=== PATIENT | female | born 1975 | race Caucasian/White ===

== ENCOUNTER 2017-05-27 03:22 | Emergency (ER) | payer BC ==
[~2017-05-27] VITALS: Ht 182.9 cm; Wt 99.2 kg
[~2017-05-27 03:22] MED LIST: ACET-1693 PO; FLUO20CA35 PO; METH10TA4 PO
[2017-05-27 03:25] VITALS: TEMP 36.8; Ht 182.9 cm; Wt 99.2 kg
[2017-05-27] MEDS ORDERED: ONDANSETRON INJ 2 MG/ML 2 ML VIAL IV STA (03:54)
[2017-05-27] MEDS ORDERED: MoRPHine SULFATE 4 MG/ML 1 ML CARP\\VIAL IV ONE (04:00)
[2017-05-27] MEDS ORDERED: SODIUM CHLORIDE 0.9% 1000ML 1,000 ML IV ONE (04:00)
[2017-05-27] MEDS ORDERED: FLUO40CA8 PO (04:20)
[2017-05-27] MEDS ORDERED: MULT-506 PO (04:20)
[2017-05-27 04:25] LABS: BASO % 0.2 %; BASO ABS # 0.02 K/uL (0-0.2); EOS % 1.2 %; HEMATOCRIT 42.6 % (37-47); HEMOGLOBIN 14.5 g/dL (12.0-16.0); IG# 0.03 K/uL (0.00-0.02); LYMPH % 22.1 %; LYMPH ABS # 1.89 K/uL (1.2-3.4); MEAN PLATELET VOLUME 11.1 fL (7.4-10.4); MONO % 4.6 %; MONO ABS # 0.39 K/uL (0.11-0.59); NEUT % 71.5 %; NEUT ABS # 6.14 K/uL (1.4-6.5); PLATELET COUNT 157 K/uL (130-400); RED CELL DISTRIBUTION WIDTH CV 12.6 % (11.5-14.5); WHITE BLOOD COUNT 8.57 K/uL (4.8-10.8)
[2017-05-27 04:43] LABS: ALBUMIN 3.7 gm/dl (3.4-5.0); CREATININE 0.83 mg/dl (0.60-1.20); POTASSIUM 3.8 mmol/L (3.5-5.1)
[2017-05-27] MEDS ORDERED: OPTIRAY 320 IV PRN (04:45)
[2017-05-27 04:46] LABS: TOTAL PROTEIN 7.9 gm/dl (6.4-8.2)
[2017-05-27] MEDS ORDERED: ONDA4TAB10 SL (07:04)
[2017-05-27 07:49] VITALS: BP 125/82; PULSE 75; O2SAT 99
--- NOTE | 2017-05-27 08:01 | DIAGNOSTIC IMAGING REPORT ---
CT OF THE ABDOMEN AND PELVIS WITH CONTRAST CLINICAL HISTORY: Abdominal pain, nausea and vomiting. Breast cancer. COMPARISON STUDY: CT of the abdomen and pelvis December 12, 2015 and abdominal series December 13, 2015. TECHNIQUE: Following IV administration of 93 mL of Optiray-320, axial images of the abdomen and pelvis were obtained from the lung bases to the proximal femurs. Images were reviewed in the axial, sagittal, and coronal planes. IV contrast was administered without complication. A dose lowering technique was utilized adhering to the principles of ALARA. CT DOSE: 853.67 mGy.cm FINDINGS: Bilateral breast implants are partially imaged on this exam. The lung bases are clear. A few hypodense right hepatic lobe lesions are unchanged from earlier studies. These are considered benign. No new hepatic lesions are present. The largest lesion is suggestive of a hemangioma. The spleen, adrenal glands, left kidney and pancreas are normal. There is scarring within the upper pole the right kidney. There is no hydronephrosis. There is no biliary or pancreatic ductal dilatation status post cholecystectomy. No abdominal or pelvic lymphadenopathy is present. A bowel anastomosis is noted. There is no evidence for a bowel obstruction. Postoperative findings involving the anterior abdominal wall are noted. There are no suspicious osseous lesions. There is no ascites. No pneumatosis, free air or portal venous gas is present. Note is made of a 3.5 cm cystic right ovarian lesion. IMPRESSION: 1. No acute process within the abdomen or pelvis. 2. No evidence for metastatic disease within the abdomen or pelvis. 3. No bowel obstruction. 4. 3.5 cm suspected right ovarian cyst. A follow-up pelvic ultrasound 6 weeks to ensure resolution is recommended. Electronically signed by: Tre Chiu M.D. 05/27/2017 8:00 AM Dictated Date/Time: 05/27/2017 7:47 AM
--- NOTE | 2017-05-27 23:06 | EMERGENCY ROOM VISIT NOTE ---
History First contact with patient: 03:43 Chief Complaint: GI ASSESSMENT Stated Complaint: BOWEL BLOCKAGE Nursing Triage Summary: ABDOMINAL PAIN NAUSEA VOMITING. PT STATES IT FEELS LIKE IT DID WHEN SHE HAD A BOWEL OBSTRUCTION History of Present Illness The patient is a 41 year old female who presents to the Emergency Room with complaints of upper abdominal pain with nausea and vomiting for the past few hours. The patient has an extensive medical history including breast cancer, cholecystectomy, appendectomy, small bowel obstruction with surgical repair, colon resection with reanastomosis, and tubal ligation. The patient states her pain tonight feels similar to when she last had a small bowel obstruction 2 years ago. She is concerned about her symptoms she also had vomiting and bloating in the upper abdomen. She rates her current discomfort a 7/10. She has not taken anything [id number] for her discomfort. She is not having any lower abdominal discomfort. She feels like she is using the bathroom is normal. Review of Systems More than 10 systems were reviewed and otherwise negative with the exception of history of present illness. Past Medical/Surgical History Medical Problems: (1) ADD (attention deficit disorder) (2) Carcinoma of breast (3) Depression (4) Dysplasia of cervix (5) Generalized anxiety disorder (6) History of hysteroscopy (7) Pulmonary embolism (8) SBO (small bowel obstruction) Surgical Problems: (1) H/O breast biopsy (2) H/O exploratory laparotomy (3) H/O mastectomy (4) History of lymphadenectomy (5) Hx of cholecystectomy Family History Cardiac disorder FATHER Diabetes mellitus FATHER Hypertension MOTHER Kidney disease MOTHER (kidney transplant) Social History Smoking Status: Never Smoker Alcohol Use: none Drug Use: none Marital Status: single Housing Status: lives alone Occupation Status: employed Current/Historical Medications Scheduled Fluoxetine (Prozac), 40 MG PO DAILY Multivitamin (Multivitamin), 1 TAB PO DAILY Ondasetron Odt (Zofran Odt), 4 MG SL Q6H Physical Exam Vital Signs Date Time Temp Pulse Resp B/P (MAP) Pulse Ox O2 Delivery O2 Flow Rate FiO2 05/27/17 07:49 75 18 125/82 99 05/27/17 06:15 70 20 128/63 99 Room Air 05/27/17 04:21 68 05/27/17 03:25 36.8 76 20 130/85 99 Room Air Physical Exam VITALS: Vitals are noted on the nurse's note and reviewed by myself. Vital signs stable. GENERAL: Well-developed, well-nourished, white female, who is in no acute distress and resting comfortably. Patient is cooperative with the examination. HEAD: Normocephalic atraumatic. HEART: Regular rate and rhythm without murmurs gallops or rubs. LUNGS: Clear to auscultation bilaterally without wheezes, rales or rhonchi. No retractions or accessory muscle use. ABDOMEN: Positive normal bowel sounds x 4. Soft with mild epigastric abdominal tenderness on palpation. No rebound or guarding. No lower abdominal tenderness. MUSCULOSKELETAL: No muscle atrophy, erythema, or edema noted. Full range of motion in all extremities. No tenderness to palpation. Medical Decision & Procedures ER Provider Diagnostic Interpretation: CT OF THE ABDOMEN AND PELVIS WITH CONTRAST CLINICAL HISTORY: Abdominal pain, nausea and vomiting. Breast cancer. COMPARISON STUDY: CT of the abdomen and pelvis December 12, 2015 and abdominal series December 13, 2015. TECHNIQUE: Following IV administration of 93 mL of Optiray-320, axial images of the abdomen and pelvis were obtained from the lung bases to the proximal femurs. Images were reviewed in the axial, sagittal, and coronal planes. IV contrast was administered without complication. A dose lowering technique was utilized adhering to the principles of ALARA. CT DOSE: 853.67 mGy.cm FINDINGS: Bilateral breast implants are partially imaged on this exam. The lung bases are clear. A few hypodense right hepatic lobe lesions are unchanged from earlier studies. These are considered benign. No new hepatic lesions are present. The largest lesion is suggestive of a hemangioma. The spleen, adrenal glands, left kidney and pancreas are normal. There is scarring within the upper pole the right kidney. There is no hydronephrosis. There is no biliary or pancreatic ductal dilatation status post cholecystectomy. No abdominal or pelvic lymphadenopathy is present. A bowel anastomosis is noted. There is no evidence for a bowel obstruction. Postoperative findings involving the anterior abdominal wall are noted. There are no suspicious osseous lesions. There is no ascites. No pneumatosis, free air or portal venous gas is present. Note is made of a 3.5 cm cystic right ovarian lesion. IMPRESSION: 1. No acute process within the abdomen or pelvis. 2. No evidence for metastatic disease within the abdomen or pelvis. 3. No bowel obstruction. 4. 3.5 cm suspected right ovarian cyst. A follow-up pelvic ultrasound 6 weeks to ensure resolution is recommended. Laboratory Results 05/27/17 04:07 Red Blood Count 4.68, Mean Corpuscular Volume 91.0, Mean Corpuscular Hemoglobin 31.0, Mean Corpuscular Hemoglobin Concent 34.0, Mean Platelet Volume 11.1, Neutrophils (%) (Auto) 71.5, Lymphocytes (%) (Auto) 22.1, Monocytes (%) (Auto) 4.6, Eosinophils (%) (Auto) 1.2, Basophils (%) (Auto) 0.2, Neutrophils # (Auto) 6.14, Lymphocytes # (Auto) 1.89, Monocytes # (Auto) 0.39, Eosinophils # (Auto) 0.10, Basophils # (Auto) 0.02 05/27/17 04:07 Test 05/27/17 04:04 05/27/17 04:07 Urine Color YELLOW Urine Appearance CLOUDY (CLEAR) Urine pH 5.0 (4.5-7.5) Urine Specific [place] 1.027 (1.000-1.030) Urine Protein NEG (NEG) Urine Glucose (UA) NEG (NEG) Urine Ketones NEG (NEG) Urine Occult Blood NEG (NEG) Urine Nitrite NEG (NEG) Urine Bilirubin NEG (NEG) Urine Urobilinogen NEG (NEG) Urine Leukocyte Esterase NEG (NEG) Urine WBC (Auto) 1-5 /hpf (0-5) Urine RBC (Auto) 5-10 /hpf (0-4) Urine Hyaline Casts (Auto) 1-5 /lpf (0-5) Urine Epithelial Cells (Auto) >30 /lpf (0-5) Urine Bacteria (Auto) NEG (NEG) Urine Test NEG (NEG) White Blood Count 8.57 K/uL (4.8-10.8) Red Blood Count 4.68 M/uL (4.2-5.4) Hemoglobin 14.5 g/dL (12.0-16.0) Hematocrit 42.6 % (37-47) Mean Corpuscular Volume 91.0 fL (80-100) Mean Corpuscular Hemoglobin 31.0 pg (25-34) Mean Corpuscular Hemoglobin Concent 34.0 g/dl (32-36) Platelet Count 157 K/uL (130-400) Mean Platelet Volume 11.1 fL (7.4-10.4) Neutrophils (%) (Auto) 71.5 % Lymphocytes (%) (Auto) 22.1 % Monocytes (%) (Auto) 4.6 % Eosinophils (%) (Auto) 1.2 % Basophils (%) (Auto) 0.2 % Neutrophils # (Auto) 6.14 K/uL (1.4-6.5) Lymphocytes # (Auto) 1.89 K/uL (1.2-3.4) Monocytes # (Auto) 0.39 K/uL (0.11-0.59) Eosinophils # (Auto) 0.10 K/uL (0-0.5) Basophils # (Auto) 0.02 K/uL (0-0.2) RDW Standard Deviation 42.0 fL (36.4-46.3) RDW Coefficient of Variation 12.6 % (11.5-14.5) Immature Granulocyte % (Auto) 0.4 % Immature Granulocyte # (Auto) 0.03 K/uL (0.00-0.02) Anion Gap 4.0 mmol/L (3-11) Est Creatinine Clear Calc Drug Dose 120.0 ml/min Estimated GFR () 103.0 Estimated GFR (Non- 88.8 BUN/Creatinine Ratio 18.3 (10-20) Calcium Level 9.0 mg/dl (8.5-10.1) Total Bilirubin 0.4 mg/dl (0.2-1) Aspartate Amino Transf (AST/SGOT) 11 U/L (15-37) Alanine Aminotransferase (ALT/SGPT) 18 U/L (12-78) Alkaline Phosphatase 61 U/L (45-117) Total Protein 7.9 gm/dl (6.4-8.2) Albumin 3.7 gm/dl (3.4-5.0) Globulin 4.2 gm/dl (2.5-4.0) Albumin/Globulin Ratio 0.9 (0.9-2) Lipase 104 U/L (73-393) Medications Administered Medications (Trade) Dose Ordered Sig/Jennifer Route Start Time Stop Time Status Last Admin Dose Admin Sodium Chloride 1,000 ml @ 999 mls/hr Q1H1M ONCE IV 05/27/17 04:00 05/27/17 05:00 DC 05/27/17 04:11 999 MLS/HR Ondansetron HCl (Zofran Inj) 4 mg NOW STAT IV 05/27/17 03:54 05/27/17 03:56 DC 05/27/17 04:11 4 MG Morphine Sulfate (MoRPHine SULFATE INJ) 4 mg NOW ONCE IV 05/27/17 04:00 05/27/17 04:01 DC 05/27/17 04:12 4 MG ED Course Physical exam and history were performed. Nursing notes, EMR, and Medication List were personally reviewed. Patient appears to have upper abdominal pain with nausea and vomiting for the past few hours. IV access was established and labs are obtained. The patient was hydrated and medicated as above. Because of her history of cancer and small bowel obstruction I elected to perform a CT scan with IV and oral contrast. The patient's blood work is as above and was reviewed. She does not have a significantly elevated white blood cell count, gross anemia, bandemia, or significant electrolyte imbalance. Lipase and transaminases are not diagnostic. Urine is without evidence of infection. The patient's CT scan is as above and was reviewed by myself and radiology. She does not appear to have a small bowel obstruction or any sort of metastatic process based on CT imaging. The patient was reevaluated multiple times throughout the course of her stay. She felt very comfortable over the course of several hours here in the department. On further questioning there may be an exposure to gastroenteritis through her son, and this certainly could be the etiology of her symptoms. Overall she does appear stable for discharge home and will be asked to follow with her PCP for recheck. The patient will be given a short course of Zofran for symptoms of nausea. She was otherwise invited back to the ER with any new, worsening, or concerning symptoms. The chart was completed utilizing [employer] Speech Voice Recognition Software. Grammatical errors, random word insertions, pronoun errors, and incomplete sentences are an occasional consequence of this system due to software limitations, ambient noise, and hardware issues. Any formal questions or concerns about the content, text, or information contained within the body of this dictation should be directly addressed to the provider for clarification. . Medical Decision Differential diagnosis: Etiologies such as appendicitis, diverticulitis, PUD, biliary pathology, UTI, pancreatitis, obstruction, mesenteric ischemia, aortic pathology, infections, inflammatory bowel disease, renal colic, as well as others were entertained. Impression Primary Impression: Bilateral upper abdominal discomfort Additional Impression: Nausea Departure Information Dispostion Home / Self-Care Condition GOOD Prescriptions Ondasetron Odt (ZOFRAN ODT) 4 Mg Tab 4 MG SL Q6H for Nausea, #12 TAB Prov: Jhonathan Crowder PA-C 05/27/17 Forms HOME CARE DOCUMENTATION FORM, IMPORTANT VISIT INFORMATION Patient Instructions My [facility] Additional Instructions You were seen and evaluated today on an emergency basis only. This is not a substitute for, or an effort to provide, complete comprehensive medical care. It is not possible to recognize and treat all injuries or illnesses in a single emergency department visit. For this reason it is recommended that you followup with your primary care physician in the next 2-3 days for recheck of your condition. Drink plenty of fluids and remain well-hydrated. Zofran 4 mg ODT: Dissolve 1 tablet every 6 hrs as needed for nausea. You are welcome to return to the emergency department anytime with new, worsening, or concerning symptoms. Problem Qualifiers
== END 2017-05-27 07:49 | disposition home or self-care (01) ==
LOC: C.EDB 03:22 → C.EDA 07:49
DX: R10.13 Epigastric pain (principal); R11.2 Nausea with vomiting, unspecified; F41.8 Other specified anxiety disorders; Z90.49 Acquired absence of other specified parts of digestive tract; Z90.89 Acquired absence of other organs; Z87.19 Personal history of other diseases of the digestive system

== ENCOUNTER → 2017-06-07 | Outpatient (CLI) | payer BC ==
[~2017-06-07] MED LIST changes: -ACET-1693 PO; -FLUO20CA35 PO; +FLUO40CA8 PO; -METH10TA4 PO; +MULT-506 PO; +ONDA4TAB10 SL
--- NOTE | 2017-06-07 15:34 | DIAGNOSTIC IMAGING REPORT ---
ULTRASOUND OF THE PELVIS CLINICAL HISTORY: Ovarian cyst. COMPARISON STUDY: Pelvic CT dated 05/27/2017. TECHNIQUE: Real-time, grayscale, and color flow sonography of the pelvis is performed both transabdominally and endovaginally. Images are reviewed in the transverse and longitudinal planes. FINDINGS: Uterus: The uterus is normal in size and echotexture, measuring 8.6 x 5.2 x 5.6 cm. Nabothian cysts are noted in the cervix. Endometrium: The endometrium is normal in appearance, and the endometrial stripe is normal in thickness measuring up to 0.8 cm. Ovaries: The ovaries are normal in size and morphology. The right ovary measures 3.1 x 1.9 x 3.1 cm and the left ovary measures 2.7 x 1.6 x 2.3 cm. Small follicles are seen bilaterally and measure up to 2.1 cm. Normal Doppler waveforms are shown within both ovaries. Pelvis: There is no free fluid in the cul-de-sac. No concerning adnexal lesion is seen. IMPRESSION: Unremarkable sonographic assessment of the pelvis. Electronically signed by: Marcos Bear M.D. 06/07/2017 3:33 PM Dictated Date/Time: 06/07/2017 3:31 PM
== END | disposition home or self-care (01) ==
LOC: C.ULTR 14:29
PROVIDERS: ATTEND Family Medicine
DX: N83.209 Unspecified ovarian cyst, unspecified side (principal)